=== PATIENT | female | born 1975 | race Two or more races ===

== ENCOUNTER 2017-04-26 18:05 | Emergency (ER) | payer SELFPAY ==
[~2017-04-26] VITALS: Ht 162.6 cm; Wt 86.5 kg
[2017-04-26] MEDS ORDERED: HYDROcodone/APAP 5/325 TABLET ONE (18:46)
[2017-04-26] MEDS ORDERED: HYDROcodone/APAP 5/325 TABLET PO ONE (19:00)
[2017-04-26 19:08] VITALS: BP 168/98
== END 2017-04-26 19:29 | disposition home or self-care (01) ==
LOC: ED 18:30
DX: H65.03 Acute serous otitis media, bilateral (principal); J00 Acute nasopharyngitis [common cold]; I10 Essential (primary) hypertension; E11.9 Type 2 diabetes mellitus without complications
CPT/HCPCS: 99283

== ENCOUNTER 2018-02-09 15:46 | Emergency (ER) | payer BC ==
[~2018-02-09] VITALS: Ht 162.6 cm; Wt 75.0 kg
[2018-02-09] MEDS ORDERED: IBUPROFEN 200 MG TABLET PO ONE (16:30)
[2018-02-09] MEDS ORDERED: IBUPROFEN 200 MG TABLET ONE (16:35)
[2018-02-09 17:44] LABS: RAPID INFLUENZA A Negative (Negative)
[2018-02-09 17:45] LABS: RAPID INFLUENZA B POSITIVE (Negative)
[2018-02-09 18:26] VITALS: BP 133/86
== END 2018-02-09 18:44 | disposition home or self-care (01) ==
LOC: ED 18:35
DX: J11.1 Influenza due to unidentified influenza virus with other respiratory manifestations (principal); J06.9 Acute upper respiratory infection, unspecified; I10 Essential (primary) hypertension; E11.9 Type 2 diabetes mellitus without complications
CPT/HCPCS: 71046; 87400; 93005; 99285